=== PATIENT | female | born 1930 | race Caucasian/White ===

== ENCOUNTER 2016-08-05 15:33 | Emergency (ER) | payer SELFPAY ==
[~2016-08-05] VITALS: Ht 154.9 cm; Wt 56.4 kg
[~2016-08-05 15:33] MED LIST: ACET500C5 PO; CLON-379 PO; LOSA25TA5 PO; METF1000 PO; METO25TA4 PO; MONT10TA24 PO; NIFE30TA60 PO
[2016-08-05 15:40] VITALS: Ht 154.9 cm; Wt 56.4 kg
== END 2016-08-05 21:40 | disposition left against medical advice (07) ==
LOC: E/R 15:33
DX: Z53.21 Procedure and treatment not carried out due to patient leaving prior to being seen by health care provider (principal)